=== PATIENT | male | born 1955 | race Caucasian/White ===

== ENCOUNTER 2017-10-02 02:10 | Observation (INO) ==
--- OUTSIDE RECORDS SUMMARY | 2017-10-02 02:17 | External Medical Summary | Referral Summary ---
:1955 Author Organization [facility] [address] [place] [address], Family Medicine Address [address] [address] Care Team Providers Name Role Phone Tejas Sharp Primary Care Physician Encounter VC Date(s): 01/12/16 - 01/12/16 [facility] , Family Medicine [address] [address] [place] Discharge Disposition: 01-Home or Self Care Attending Physician: Kristin Mejía Admitting Physician: Kristin Mejía Vital Signs Most recent to oldest [Reference Range]: 1 Temperature Oral [35.8-37.3 degC] 36.7 degC (01/12/16 4:04 PM) Peripheral Pulse Rate [60-100 bpm] 72 bpm (01/12/16 4:04 PM) Respiratory Rate [14-20 br/min] 16 br/min (01/12/16 4:04 PM) Blood Pressure [90-140/60-90 mmHg] 152/98 mmHg *HI* (01/12/16 4:04 PM) Problem List Condition Effective Dates Status Health Status Informant Acute upper respiratory infection Active (disorder)(Confirmed) Benign essential hypertension Active (disorder)(Confirmed) GERD (gastroesophageal reflux Active disease)(Confirmed) Mixed hyperlipidemia(Confirmed) Active Obesity(Confirmed) Active patient Allergies, Adverse Reactions, Alerts No Known Medication Allergies Medications Cozaar 100 mg oral tablet See Instructions, TAKE 1 TABLET BY MOUTH EVERY DAY, # 90 tabs, [id number], TAKE 1 TABLET BY MOUTH EVERY DAY Start Date: 11/14/15 Status: Orderedfenofibrate 145 mg oral tablet See Instructions, TAKE 1 TABLET BY MOUTH EVERY DAY, # 30 tabs, 5 Refill(s), [facility] : [id number], TAKE 1 TABLET BY MOUTH EVERY DAY Start Date: 09/19/15 Status: OrderedProtonix 40 mg oral delayed release tablet See Instructions, TAKE 1 TABLET BY MOUTH EVERY DAY, # 90 tabs, eRx: [facility]/ pharmacy #[id number], TAKE 1 TABLET BY MOUTH EVERY DAY Start Date: 11/07/15 Status: Orderedranitidine 150 mg oral tablet 150 mg 1 tabs, Oral, Bedtime (once a day), # 30 tabs, 0 Refill(s), Pharmacy: [facility] /pharmacy #[id number], 1 tabs Oral Bedtime (once a day) Start Date: 09/09/15 Status: Ordered Results No data available for this section Immunizations Vaccine Date Refusal Reason influenza virus vaccine, inactivated 09/09/15 influenza virus vaccine, inactivated 08/03/14 influenza virus vaccine, live 07/22/13 influenza virus vaccine, live 09/11/12 Procedures Procedure Date Related Diagnosis Body Site Colonoscopy1 12/03/14 knee Laparoscopy 2012 bilateral Inguinal herniorrhaphy 2010 Cholecystectomy 2001 1normal Social History Social History Type Response Smoking Status Never smoker Assessment and Plan Extracted from: Title: Ankle/Foot Problems * Author: Kristin Mejía Date: 01/12/16 Impression and Plan Diagnosis Foot pain, right (WOX55-HB M79.671, Working, Medical). Right leg pain (GRW13-NU M79.604, Medical). Right TIb/Fib: WNL Right foot: ? avulsion fx off lateral calcaneous Viewed in office. Referral to Ortho per pt preference over MRI first. RTC if Sx worsen or change.
--- OUTSIDE RECORDS SUMMARY | 2017-10-02 02:17 | External Medical Summary | Referral Summary ---
:1955 Author Organization [facility] [address] [place] [address], Family Medicine Address [address] [address] Care Team Providers Name Role Phone Tejas Sharp Primary Care Physician Encounter VC Date(s): 09/09/15 - 09/09/15 [facility] [address] , Family Medicine [address] [address] [place] Discharge Diagnosis: Low back pain Discharge Diagnosis: Routine physical examination Discharge Diagnosis: GERD (gastroesophageal reflux disease) Discharge Diagnosis: Mixed hyperlipidemia Discharge Diagnosis: HTN (hypertension) Discharge Disposition: 01-Home or Self Care Attending Physician: Tejas Sharp DO Admitting Physician: Tejas Sharp DO Vital Signs Most recent to oldest [Reference Range]: 1 Temperature Oral [35.8-37.3 degC] 36.8 degC (09/09/15 3:19 PM) Peripheral Pulse Rate [60-100 bpm] 68 bpm (09/09/15 3:19 PM) Respiratory Rate [14-20 br/min] 20 br/min (09/09/15 3:19 PM) Blood Pressure [90-140/60-90 mmHg] 144/86 mmHg *HI* (09/09/15 3:19 PM) Problem List Condition Effective Dates Status Health Status Informant Acute upper respiratory infection Active (disorder)(Confirmed) Benign essential hypertension Active (disorder)(Confirmed) GERD (gastroesophageal reflux Active disease)(Confirmed) Mixed hyperlipidemia(Confirmed) Active Obesity(Confirmed) Active patient Allergies, Adverse Reactions, Alerts No Known Medication Allergies Medications Cozaar 100 mg oral tablet See Instructions, TAKE 1 TABLET BY MOUTH ONCE DAILY, # 90 tabs, 1 Refill(s), [facility] : [id number], TAKE 1 TABLET BY MOUTH ONCE DAILY Start Date: 08/30/15 Status: OrderedProtonix 40 mg oral delayed release tablet See Instructions, TAKE 1 TABLET BY MOUTH EVERY DAY, # 90 tabs, 0 Refill(s), [id number], TAKE 1 TABLET BY MOUTH EVERY DAY Start Date: 08/17/15 Status: Orderedranitidine 150 mg oral tablet 150 mg 1 tabs, Oral, Bedtime (once a day), # 30 tabs, 0 Refill(s), Pharmacy: [facility] /pharmacy #[id number], 1 tabs Oral Bedtime (once a day) Start Date: 09/09/15 Status: OrderedRobaxin-750 oral tablet 750 mg 1 tabs, Oral, TID, X 30 days, # 90 tabs, 3 Refill(s), Pharmacy: [facility] pharmacy #[id number], 1 tabs Oral TID,x30 days Start Date: 09/09/15 Stop Date: 01/07/16 Status: Ordered Results Hematology Most recent to oldest [Reference Range]: 1 WBC [4.8-10.8 10*3/uL] 5.8 10*3/uL (09/09/15 4:39 PM) RBC [4.60-6.20] 4.88 (09/09/15 4:39 PM) Hgb [14.0-18.0 gm/dL] 14.9 gm/dL (09/09/15 4:39 PM) Hct [42.0-52.0 %] 42.1 % (09/09/15 4:39 PM) MCV [82.0-99.0 fL] 86.3 fL (09/09/15 4:39 PM) MCH [27.0-32.0 pg] 30.5 pg (09/09/15 4:39 PM) MCHC [32.0-36.0 gm/dL] 35.4 gm/dL (09/09/15 4:39 PM) RDW [11.5-14.5 %] 12.4 % (09/09/15 4:39 PM) Platelet [150-400 10*3/uL] 206 10*3/uL (09/09/15 4:39 PM) MPV [8.8-14.8 fL] 10.2 fL (09/09/15 4:39 PM) Immature Granulocytes [0.0-1.0 %] 0.5 % (09/09/15 4:39 PM) Neutrophils [51-75 %] 61 % (09/09/15 4:39 PM) Lymphocytes [20-46 %] 28 % (09/09/15 4:39 PM) Monocytes [4-11 %] 9 % (09/09/15 4:39 PM) Eosinophils [0-4 %] 2 % (09/09/15 4:39 PM) Basophils [0-2 %] 0 % (09/09/15 4:39 PM) Neutro Absolute [1.90-7.00 10*3] 3.48 10*3 (09/09/15 4:39 PM) Lymph Absolute [0.80-3.30 10*3] 1.61 10*3 (09/09/15 4:39 PM) H[place]ett Absolute [0.30-1.00 10*3] 0.52 10*3 (09/09/15 4:39 PM) Eos Absolute [0.00-0.50 10*3] 0.10 10*3 (09/09/15 4:39 PM) Baso Absolute [0.00-0.20 10*3] 0.01 10*3 (09/09/15 4:39 PM) Chemistry Most recent to oldest [Reference Range]: 1 Sodium Lvl [135-144 mEq/L] 140 mEq/L (09/09/15 4:39 PM) Potassium Lvl [3.5-5.2 mEq/L] 3.8 mEq/L (09/09/15 4:39 PM) Chloride [99-111 mEq/L] 104 mEq/L (09/09/15 4:39 PM) CO2 [23-31 mEq/L] 28 mEq/L (09/09/15 4:39 PM) AGAP [3-20] 8 (09/09/15 4:39 PM) BUN [8-26 mg/dL] 14 mg/dL (09/09/15 4:39 PM) Glucose Lvl [70-99 mg/dL] 95 mg/dL (09/09/15 4:39 PM) Creatinine Lvl [0.72-1.25 mg/dL] 1.05 mg/dL (09/09/15 4:39 PM) eGFR [>60 mL/min] >60 mL/min 1 (09/09/15 4:39 PM) Calcium Lvl [8.9-10.5 mg/dL] 9.7 mg/dL (09/09/15 4:39 PM) Albumin Lvl [3.5-5.0 gm/dL] 4.3 gm/dL (09/09/15 4:39 PM) Total Protein [6.4-8.3 gm/dL] 7.0 gm/dL (09/09/15 4:39 PM) Globulin [1.8-4.0 gm/dL] 2.7 gm/dL (09/09/15 4:39 PM) ALT [0-55 U/L] 22 U/L (09/09/15 4:39 PM) AST [5-34 U/L] 19 U/L (09/09/15 4:39 PM) Alk Phos [40-150 U/L] 39 U/L *LOW* (09/09/15 4:39 PM) Bili Total [0.2-1.2 mg/dL] 0.6 mg/dL (09/09/15 4:39 PM) PSA (wihout Reflex Free) [0.0-3.5 ng/mL] 0.8 ng/mL 2 (09/09/15 4:39 PM) Chol [0-199 mg/dL] 222 mg/dL *HI* (09/09/15 4:39 PM) Trig [0-149 mg/dL] 119 mg/dL (09/09/15 4:39 PM) HDL [40-84 mg/dL] 39 mg/dL *LOW* (09/09/15 4:39 PM) LDL [0-130 mg/dL] 159 mg/dL *HI* (09/09/15 4:39 PM) VLDL Cholesterol [0-28 mg/dL] 24 mg/dL (09/09/15 4:39 PM) Cardiac Risk [0.0-5.7] 5.7 (09/09/15 4:39 PM) TSH [0.35-4.94] 1.94 (09/09/15 4:39 PM) 1Result Comment: Multiply eGFR results by 1.21 for race.2Result Comment: AUA PSA Best Practice Guidelines: Age-Adjusted PSA Values by Ethnic Group Age Range Asians - Caucasians Americans 40-49 0-2.0 0-2.0 0-2.5 50-59 0-3.0 0-4.0 0-3.5 60-69 0-4.0 0-4.5 0-4.5 70-79 0-5.0 0-5.5 0-6.5 Immunizations Vaccine Date Refusal Reason influenza virus vaccine, inactivated 09/09/15 influenza virus vaccine, inactivated 08/03/14 influenza virus vaccine, live 07/22/13 influenza virus vaccine, live 09/11/12 Procedures Procedure Date Related Diagnosis Body Site Colonoscopy1 12/03/14 knee Laparoscopy 2012 bilateral Inguinal herniorrhaphy 2010 Cholecystectomy 2001 1normal Social History Social History Type Response Smoking Status Never smoker Assessment and Plan Extracted from: Title: Well Adult Exam - Male *, HTN/HLD Author: Tejas Sharp DO Date: Impression and Plan Diagnosis Routine physical examination (FIN71-ZM Z00.00, Discharge, Medical). Low back pain (JPV94-BL M54.5, Discharge, Medical). GERD (gastroesophageal reflux disease) (SAM18-JW K21.9, Discharge, Medical). Course: Progressing as expected. Plan: pt ed and reassurance anticipatory guidance lab preventative testing discussed, Lspine xray -- degen changes nsaids rx: robaxin stretching avoid heavy lifting and excerbating activity if worsen-- MRI disc lifestyle modifications continue protonix add zantac if persists -- EGD stop statin and fenofibrate. Patient Instructions: follow up in one year or sooner if needed. Diagnosis HTN (hypertension) ([id number]-[id number] I10, Discharge, Medical). Mixed hyperlipidemia (WIK62-YD E78.2, Discharge, Medical). Plan: 1. HTN - Blood pressure logs at home - discussed goal blood pressure Recommend a heart healthy diet, reduction of salt intake, limiting alcohol intake, smoking cessation, and exercise regularly avoid NSAIDS (anti-inflammatories) and over the counter decongestants 2. HLD -- Decrease cholesterol and fats in diet cont. med. discussed prison effects of elevated lipds including HTN, PAD, CVA, UT. LAB, f/u in 6 months. Dx/Order Association Plan: .
--- OUTSIDE RECORDS SUMMARY | 2017-10-02 02:17 | External Medical Summary | Referral Summary ---
:1955 Author Organization [facility] [address] [place] [address], Family Medicine Address [address] [address] Care Team Providers Name Role Phone Tejas Sharp Primary Care Physician Encounter [facility] [id number] Date(s): 11/28/15 - 11/28/15 [facility] , Family Medicine [address] [address] [place] Discharge Diagnosis: Acute maxillary sinusitis Discharge Disposition: 01-Home or Self Care Attending Physician: Tejas Sharp DO Admitting Physician: Tejas Sharp DO Vital Signs Most recent to oldest [Reference Range]: 1 Temperature Tympanic [36.6-38.1 degC] 36.5 degC *LOW* (11/28/15 11:33 AM) Peripheral Pulse Rate [60-100 bpm] 68 bpm (11/28/15 11:33 AM) Respiratory Rate [14-20 br/min] 16 br/min (11/28/15 11:33 AM) Blood Pressure [90-140/60-90 mmHg] 128/80 mmHg (11/28/15 11:33 AM) SpO2 99 % (11/28/15 11:33 AM) Problem List Condition Effective Dates Status Health Status Informant Acute upper respiratory infection Active (disorder)(Confirmed) Benign essential hypertension Active (disorder)(Confirmed) GERD (gastroesophageal reflux Active disease)(Confirmed) Mixed hyperlipidemia(Confirmed) Active Obesity(Confirmed) Active patient Allergies, Adverse Reactions, Alerts No Known Medication Allergies Medications Cozaar 100 mg oral tablet See Instructions, TAKE 1 TABLET BY MOUTH EVERY DAY, # 90 tabs, [id number], TAKE 1 TABLET BY MOUTH EVERY DAY Start Date: 11/14/15 Status: Orderedfenofibrate 145 mg oral tablet See Instructions, TAKE 1 TABLET BY MOUTH EVERY DAY, # 30 tabs, 5 Refill(s), eRx : [facility]/pharmacy #[id number], TAKE 1 TABLET BY MOUTH EVERY DAY Start Date: 09/19/15 Status: OrderedpredniSONE 20 mg oral tablet 20 mg 1 tabs, Oral, Daily, X 5 days, # 5 tabs, 0 Refill(s), Pharmacy: [facility]/ pharmacy #[id number], 1 tabs Oral Daily,x5 days Start Date: 11/28/15 Stop Date: 12/03/15 Status: OrderedProtonix 40 mg oral delayed release tablet See Instructions, TAKE 1 TABLET BY MOUTH EVERY DAY, # 90 tabs, eRx: [facility]/ pharmacy #[id number], TAKE 1 TABLET BY MOUTH EVERY DAY Start Date: 11/07/15 Status: Orderedranitidine 150 mg oral tablet 150 mg 1 tabs, Oral, Bedtime (once a day), # 30 tabs, 0 Refill(s), [id number], 1 tabs Oral Bedtime (once a day) Start Date: 09/09/15 Status: OrderedRobaxin-750 oral tablet 750 mg 1 tabs, Oral, TID, X 30 days, # 90 tabs, 3 Refill(s), Pharmacy: [facility]/ pharmacy #[id number], 1 tabs Oral TID,x30 days Start Date: 09/09/15 Stop Date: 01/07/16 Status: OrderedZithromax Z-Eugenio 250 mg oral tablet 1 packets, Oral, Daily, as directed on package labeling, X 5 days, # 6 tabs, 0 Refill(s), Pharmacy: [facility]/pharmacy #[id number], 1 packets Oral Daily,x5 days,Instr:as directed on package labeling Start Date: 11/28/15 Stop Date: 12/03/15 Status: Ordered Results No data available for this section Immunizations Vaccine Date Refusal Reason influenza virus vaccine, inactivated 09/09/15 influenza virus vaccine, inactivated 08/03/14 influenza virus vaccine, live 07/22/13 influenza virus vaccine, live 09/11/12 Procedures Procedure Date Related Diagnosis Body Site Colonoscopy1 12/03/14 knee Laparoscopy 2012 bilateral Inguinal herniorrhaphy 2011 Cholecystectomy 2001 1normal Social History Social History Type Response Smoking Status Never smoker Assessment and Plan Extracted from: Title: Upper Respiratory Infection * Author: Tejas Sharp DO Date: Impression and Plan Diagnosis Acute maxillary sinusitis (ETM41-GR J01.00, Discharge, Medical). Plan: sx tx: tylenol, motrin, fluids, rest; otc cough and cold prn cool mist humidifier rx: zpack rx: prednisone f.u if sx persist.
--- OUTSIDE RECORDS SUMMARY | 2017-10-02 02:17 | External Medical Summary | Continuity of Care Document ---
:1955 Author Organization [facility] Allergies Active Description Code Type Severity Reaction Onset Reported/ Identified Relationship Clinical to Patient Status Yes No Known NKMA N/A N/A 08/02/2014 Medication Allergies Medications There is no data. Problems Date Dx Attending Type Code Diagnosis Diagnosed By Coded 10/12/2016 Tejas Sharp E78.2 Mixed hyperlipidemia B 10/12/2016 Tejas Sharp F43.9 Reaction to severe B stress, unspecified 10/12/2016 Tejas Sharp I10 Essential (primary) B hypertension 10/12/2016 Tejas Sharp Z00.00 Encounter for B general adult medical examination without abnormal findings 11/09/2016 Tejas Sharp F43.9 Reaction to severe B stress, unspecified 11/09/2016 Tejas Sharp K21.9 Gastro-esophageal B reflux disease without esophagitis Procedures Code Description [place] [id number] Radiologic 01/12/2016 examination; tibia and fibula, 2 views [id number] Radiologic 01/12/2016 examination, foot; complete, minimum of 3 views.. 32507 Office or 01/12/2016 other outpatient visit for the evaluation and management of an established patient, which requires at least 2 of these 3 currie components: An expanded problem focused history; An expanded prob 85291 Office or 11/09/2016 other outpatient visit for the evaluation and management of an established patient, which requires at least 2 of these 3 currie components: An expanded problem focused history; An expanded prob Results There is no data. Encounters ACCT No. Visit Discharge Status Pt. Type Provider Facility Loc./Unit Complaint Date/Time [id number] 11/06/2013 11/06/2013 CLS Outpatient 10:13:00 23:59:59 [id number] 10/24/2013 10/24/2013 CLS Outpatient 09:26:00 23:59:59 [id number] 11/09/2016 11/09/2016 DIS Outpatient Lilian Sharp [facility] recheck 38 15:52:00 23:59:00 Tejas Damon [facility] [id number] 10/12/2016 10/12/2016 DIS Outpatient Sharp, Via [facility] TCPA 16 15:55:00 23:59:00 Tejas [place]field [facility] ANNUAL PHY Clinic [id number] 01/12/2016 01/12/2016 DIS Outpatient Methvin, Via [facility] ACC RIGHT 76 15:54:00 23:59:00 Kristin [place] [facility] LOWER FOOT Clinic INJ [id number] 11/28/2015 11/28/2015 DIS Outpatient Sharp, [facility] sinus inf 28 11:31:00 23:59:00 Tejas Damon Twyla FM Clinic [id number] 09/09/2015 09/09/2015 CLS Outpatient Sharp, [facility] WME and 64 15:06:00 23:59:59 Tejas Wakefield CDM Clinic [id number] 10/07/2014 10/07/2014 DIS Outpatient Sharp, [facility] fu appt 04 13:36:00 23:59:00 Tejas Damon [facility] heart Clinic issues, ekg refill rx [id number] 09/06/2014 09/06/2014 DIS Outpatient Chavez, Via [facility] cdm htn, 65 15:04:00 23:59:00 Elizabeth Wakefield discuss rx Clinic changes [id number] 08/03/2014 08/03/2014 DIS Outpatient Methvin, [facility] cdm htn am 38 15:12:00 23:59:00 Kristin Wakefield pt Clinic
--- OUTSIDE RECORDS SUMMARY | 2017-10-02 02:17 | External Medical Summary | Referral Summary ---
:1955 Author Organization [facility] Address [address] [address] Care Team Providers Name Role Phone Tejas Sharp Primary Care Physician Encounter [facility] [id number] Date(s): 10/12/16 - 10/12/16 [facility] [address] [address] [place] Discharge Diagnosis: HTN (hypertension) Discharge Diagnosis: Mixed hyperlipidemia Discharge Diagnosis: Stress Discharge Diagnosis: Routine physical examination Discharge Disposition: 01-Home or Self Care Attending Physician: Tejas Sharp DO Vital Signs Most recent to oldest [Reference Range]: 1 Temperature Tympanic [36.6-38.1 degC] 36.9 degC (10/12/16 4:04 PM) Peripheral Pulse Rate [60-100 bpm] 73 bpm (10/12/16 4:04 PM) Respiratory Rate [14-20 br/min] 16 br/min (10/12/16 4:04 PM) Blood Pressure [90-140/60-90 mmHg] 120/82 mmHg (10/12/16 4:04 PM) Problem List Condition Effective Dates Status Health Status Informant Acute upper respiratory infection Active (disorder)(Confirmed) Benign essential hypertension Active (disorder)(Confirmed) GERD (gastroesophageal reflux Active disease)(Confirmed) Mixed hyperlipidemia(Confirmed) Active Obesity(Confirmed) Active patient Allergies, Adverse Reactions, Alerts No Known Medication Allergies Medications fenofibrate 145 mg oral tablet See Instructions, TAKE 1 TABLET BY MOUTH EVERY DAY, # 30 tabs, 5 Refill(s), eRx : [id number], TAKE 1 TABLET BY MOUTH EVERY DAY Start Date: 09/19/15 Status: OrderedFLUoxetine 20 mg oral capsule 20 mg 1 caps, Oral, Daily, # 30 caps, 0 Refill(s), [id number] , 1 caps Oral Daily Start Date: 10/12/16 Status: Orderedlosartan 100 mg oral tablet See Instructions, TAKE 1 TABLET BY MOUTH EVERY DAY, # 90 tabs, eRx: [facility]/ pharmacy #[id number] Start Date: 08/13/16 Status: Orderedmethocarbamol 750 mg oral tablet See Instructions, TAKE 1 TABLET BY MOUTH 3 TIMES A DAY, # 90 tabs, 3 Refill(s), [id number], TAKE 1 TABLET BY MOUTH 3 TIMES A DAY Start Date: 05/08/16 Status: Orderedpantoprazole 40 mg oral delayed release tablet See Instructions, TAKE 1 TABLET BY MOUTH EVERY DAY, # 90 tabs, 1 Refill(s), eRx : [facility] #[id number] Start Date: 08/13/16 Status: OrderedraNITIdine 150 mg oral tablet 150 mg 1 tabs, Oral, Bedtime (once a day), # 30 tabs, 0 Refill(s), [id number], 1 tabs Oral Bedtime (once a day) Start Date: 10/12/16 Status: Ordered Results Hematology Most recent to oldest [Reference Range]: 1 WBC [4.8-10.8 10*3/uL] 6.6 10*3/uL (10/12/16 4:47 PM) RBC [4.60-6.20] 5.15 (10/12/16 4:47 PM) Hgb [14.0-18.0 gm/dL] 15.2 gm/dL (10/12/16 4:47 PM) Hct [42.0-52.0 %] 45.5 % (10/12/16 4:47 PM) MCV [82.0-99.0 fL] 88.3 fL (10/12/16 4:47 PM) MCH [27.0-32.0 pg] 29.5 pg (10/12/16 4:47 PM) MCHC [32.0-36.0 gm/dL] 33.4 gm/dL (10/12/16 4:47 PM) RDW [11.5-14.5 %] 12.9 % (10/12/16 4:47 PM) Platelet [150-400 10*3/uL] 181 10*3/uL (10/12/16 4:47 PM) MPV [8.8-14.8 fL] 9.9 fL (10/12/16 4:47 PM) Immature Granulocytes [0.0-1.0 %] 0.6 % (10/12/16 4:47 PM) Neutrophils [51-75 %] 54 % (10/12/16 4:47 PM) Lymphocytes [20-46 %] 33 % (10/12/16 4:47 PM) Monocytes [4-11 %] 10 % (10/12/16 4:47 PM) Eosinophils [0-4 %] 2 % (10/12/16 4:47 PM) Basophils [0-2 %] 0 % (10/12/16 4:47 PM) Neutro Absolute [1.90-7.00] 3.61 (10/12/16 4:47 PM) Lymph Absolute [0.80-3.30] 2.20 (10/12/16 4:47 PM) [place] Absolute [0.30-1.00] 0.64 (10/12/16 4:47 PM) Eos Absolute [0.00-0.50] 0.13 (10/12/16 4:47 PM) Baso Absolute [0.00-0.20] 0.02 (10/12/16 4:47 PM) Chemistry Most recent to oldest [Reference Range]: 1 Sodium Lvl [135-144 mEq/L] 141 mEq/L (10/12/16 4:47 PM) Potassium Lvl [3.5-5.2 mEq/L] 4.8 mEq/L (10/12/16 4:47 PM) Chloride [99-111 mEq/L] 105 mEq/L (10/12/16 4:47 PM) CO2 [23-31 mEq/L] 27 mEq/L (10/12/16 4:47 PM) AGAP [3-20] 9 (10/12/16 4:47 PM) BUN [8-26 mg/dL] 16 mg/dL (10/12/16 4:47 PM) Glucose Lvl [70-99 mg/dL] 81 mg/dL (10/12/16 4:47 PM) Creatinine Lvl [0.72-1.25 mg/dL] 1.04 mg/dL (10/12/16 4:47 PM) eGFR [>60 mL/min] >60 mL/min 1 (10/12/16 4:47 PM) Calcium Lvl [8.4-10.2 mg/dL] 9.4 mg/dL 2 (10/12/16 4:47 PM) Albumin Lvl [3.5-5.0 gm/dL] 4.5 gm/dL (10/12/16 4:47 PM) Total Protein [6.0-7.6 gm/dL] 7.2 gm/dL (10/12/16 4:47 PM) Globulin [1.8-4.0 gm/dL] 2.7 gm/dL (10/12/16 4:47 PM) ALT [0-55 U/L] 29 U/L (10/12/16 4:47 PM) AST [5-34 U/L] 21 U/L (10/12/16 4:47 PM) Alk Phos [40-150 U/L] 48 U/L (10/12/16 4:47 PM) Bili Total [0.2-1.2 mg/dL] 0.8 mg/dL (10/12/16 4:47 PM) PSA (wihout Reflex Free) [0.0-3.5 ng/mL] 1.2 ng/mL 3 (10/12/16 4:47 PM) Chol [0-199 mg/dL] 204 mg/dL *HI* (10/12/16 4:47 PM) Trig [0-149 mg/dL] 178 mg/dL *HI* (10/12/16 4:47 PM) HDL [40-84 mg/dL] 36 mg/dL *LOW* (10/12/16 4:47 PM) LDL [0-130 mg/dL] 132 mg/dL *HI* (10/12/16 4:47 PM) VLDL Cholesterol [0-28 mg/dL] 36 mg/dL *HI* (10/12/16 4:47 PM) Cardiac Risk [0.0-5.7] 5.7 (10/12/16 4:47 PM) TSH with Reflex Free T4 [0.35-4.94] 1.68 (10/12/16 4:47 PM) 1Result Comment: Multiply eGFR results by 1.21 for race.2Result Comment: Please note reference range change effective 2016.3Result Comment: AUA PSA Best Practice Guidelines: Age-Adjusted PSA Values by Ethnic Group Age Range Asians - Caucasians Americans 40-49 0-2.0 0-2.0 0-2.5 50-59 0-3.0 0-4.0 0-3.5 60-69 0-4.0 0-4.5 0-4.5 70-79 0-5.0 0-5.5 0-6.5 Immunizations Given and Recorded Vaccine Date Status Refusal Reason influenza virus vaccine, inactivated 09/09/15 Given influenza virus vaccine, inactivated 08/03/14 Recorded influenza virus vaccine, live 07/22/13 Given influenza virus vaccine, live 09/11/12 Given Procedures Procedure Date Related Diagnosis Body Site Collection of venous blood by venipuncture 10/12/16 Colonoscopy1 12/03/14 knee Laparoscopy 2012 bilateral Inguinal herniorrhaphy 2010 Cholecystectomy 2002 1normal Social History Social History Type Response Smoking Status Never smoker Assessment and Plan Extracted from: Title: Ambulatory Patient Education Author: Tejas Sharp DO Date: Preventive Medicine Health Maintenance, Male A healthy lifestyle and preventative care can promote health and wellness. Maintain regular health, dental, and eye exams. Eat a healthy diet. Foods like vegetables, fruits, whole grains, low- fat dairy products, and lean protein foods contain the nutrients you need and are low in calories. Decrease your intake of jackie ds high in solid fats, added sugars, and salt. Get information about a proper diet from your health care provider, if necessary. Regular physical exercise is one of the most important things you can do for your health. Most adults should get at least 150 minutes of moderate- intensity exercise (any activity that increases y our heart rate and causes you to sweat) each week. In addition, most adults need muscle-strengthening exercises on 2 or more days a week. Maintain a healthy weight. The body mass index (BMI) is a screening tool to identify possible weight problems. It provides an estimate of body fat based on height and weight. Your health care pro vider can find your BMI and can help you achieve or maintain a healthy weight. For males 20 years and older: A BMI below 18.5 is considered underweight. A BMI of 18.5 to 24.9 is normal. A BMI of 25 to 29.9 is considered overweight. A BMI of 30 and above is considered obese. Maintain normal blood lipids and cholesterol by exercising and minimizing your intake of saturated fat. Eat a balanced diet with plenty of fruits and vegetables. Blood tests for lipids and choles terol should begin at age 20 and be repeated every 5 years. If your lipid or cholesterol levels are high, you are over age 50, or you are at high risk for heart disease, you may need your cholesterol le vels checked more frequently.Ongoing high lipid and cholesterol levels should be treated with medicines if diet and exercise are not working. If you smoke, find out from your health care provider how to quit. If you do not use tobacco, do not start. Lung cancer screening is recommended for adults aged 5580 years who are at high risk for developing lung cancer because of a history of smoking. A yearly low-dose CT scan of the lungs is recom mended for people who have at least a 57-bony-fcya history of smoking and are current smokers or have quit within the past 15 years. A pack year of smoking is smoking an average of 1 pack of cigarettes a day for 1 year (for example, a 27-slhq-gfyw history of smoking could mean smoking 1 pack a day for 30 years or 2 packs a day for 15 years). Yearly screening should continue until the smoker has stoppe d smoking for at least 15 years. Yearly screening should be stopped for people who develop a health problem that would prevent them from having lung cancer treatment. If you choose to drink alcohol, do not have more than 2 drinks per day. One drink is considered to be 12 oz (360 mL) of beer, 5 oz (150 mL) of wine, or 1.5 oz (45 mL) of liquor. Avoid the use of street drugs. Do not share needles with anyone. Ask for help if you need support or instructions about stopping the use of drugs. High blood pressure causes heart disease and increases the risk of stroke. High blood pressure is more likely to develop in: People who have blood pressure in the end of the normal range (642415 /8589 mm Hg). People who are overweight or obese. People who are . If you are 1839 years of age, have your blood pressure checked every 35 years. If you are 40 years of age or older, have your blood pressure checked every year. You should have your blood p ressure measured twiceonce when you are at a hospital or clinic, and once when you are not at a hospital or clinic. Record the average of the two measurements. To check your blood pressure when you are not at a hospital or clinic, you can use: An automated blood pressure machine at a pharmacy. A home blood pressure monitor. If you are 4579 years old, ask your health care provider if you should take aspirin to prevent heart disease. Diabetes screening involves taking a blood sample to check your fasting blood sugar level. This should be done once every 3 years after age 45 if you are at a normal weight and without risk facto rs for diabetes. Testing should be considered at a younger age or be carried out more frequently if you are overweight and have at least 1 risk factor for diabetes. Colorectal cancer can be detected and often prevented. Most routine colorectal cancer screening begins at the age of 50 and continues through age 75. However, your health care provider may recomm end screening at an earlier age if you have risk factors for colon cancer. On a yearly basis, your health care provider may provide home test kits to check for hidden blood in the stool. A small camera at the end of a tube may be used to directly examine the colon (sigmoidoscopy or colonoscopy) to detect the earliest forms of colorectal cancer. Talk to your health care provider about this at age 50 wh en routine screening begins. A direct exam of the colon should be repeated every 510 years through age 75, unless early forms of precancerous polyps or small growths are found. People who are at an increased risk for hepatitis B should be screened for this virus. You are considered at high risk for hepatitis B if: You were born in a country where hepatitis B occurs often. Talk with your health care provider about which countries are considered high risk. Your parents were born in a high-risk country and you have not received a shot to protect against hepatitis B (hepatitis B vaccine). You have HIV or AIDS. You use needles to inject street drugs. You live with, or have sex with, someone who has hepatitis B. You are a man who has sex with other men (MSM). You get hemodialysis treatment. You take certain medicines for conditions like cancer, organ transplantation, and autoimmune conditions. Hepatitis C blood testing is recommended for all people born from 1945 through 1965 and any individual with known risk factors for hepatitis C. Healthy men should no longer receive prostate-specific antigen (PSA) blood tests as part of routine cancer screening. Talk to your health care provider about prostate cancer screening. Testicular cancer screening is not recommended for adolescents or adult males who have no symptoms. Screening includes self-exam, a health care provider exam, and other screening tests. Consult w ith your health care provider about any symptoms you have or any concerns you have about testicular cancer. Practice safe sex. Use condoms and avoid high-risk sexual practices to reduce the spread of sexually transmitted infections (STIs). You should be screened for STIs, including gonorrhea and chlamydia if: You are sexually active and are younger than 24 years. You are older than 24 years, and your health care provider tells you that you are at risk for this type of infection. Your sexual activity has changed since you were last screened, and you are at an increased risk for chlamydia or gonorrhea. Ask your health care provider if you are at risk. If you are at risk of being infected with HIV, it is recommended that you take a prescription medicine daily to prevent HIV infection. This is called pre-exposure prophylaxis (PrEP). You are considered at risk if: You are a man who has sex with other men (MSM). You are a heterosexual man who is sexually active with multiple partners. You take drugs by injection. You are sexually active with a partner who has HIV. Talk with your health care provider about whether you are at high risk of being infected with HIV. If you choose to begin PrEP, you should first be tested for HIV. You should then be tested every 3 months for as long as you are taking PrEP. Use sunscreen. Apply sunscreen liberally and repeatedly throughout the day. You should seek shade when your shadow is shorter than you. Protect yourself by wearing long sleeves, pants, a wide-esther mmed hat, and sunglasses year round whenever you are outdoors. Tell your health care provider of new moles or changes in moles, especially if there is a change in shape or color. Also, tell your health care provider if a mole is larger than the size of a pencil eraser. A one-time screening for abdominal aortic aneurysm (AAA) and surgical repair of large AAAs by ultrasound is recommended for men aged 6575 years who are current or former smokers. Stay current with your vaccines (immunizations). This information is not intended to replace advice given to you by your health care provider. Make sure you discuss any questions you have with your health care provider. Document Released: 02/14/2009 Document Revised: 09/09/2015 Document Reviewed: 01/14/2012 [employer] Patient Education 2016 [employer] No follow up information was provided. Extracted from: Title: Well Adult Exam - Male *, HTN/HLD Author: Tejas Sharp DO Date: Impression and Plan Diagnosis Routine physical examination (APG72-NH Z00.00, Discharge, Medical). Stress (FTU12-XP F43.9, Discharge, Medical). Course: Progressing as expected. Plan: pt ed and reassurance anticipatory guidance lab preventative testing discussed, pt ed and reassurance counseling trial of fluoxetine f/u in 2-4 weeks . Patient Instructions: follow up in one year or sooner if needed. Diagnosis HTN (hypertension) ([id number] I10, Discharge, Medical). Mixed hyperlipidemia (ZFC09-ZJ E78.2, Discharge, Medical). Plan: 1. HTN - Blood pressure logs at home - discussed goal blood pressure Recommend a heart healthy diet, reduction of salt intake, limiting alcohol intake, , and exercise regularly avoid NSAIDS (an ti-inflammatories) and over the counter decongestants 2. HLD -- Decrease cholesterol and fats in diet cont. med. discussed intermediate effects of elevated lipds including HTN, PAD, CVA, VA. LAB, f/u in 6 months. Patient Instructions: Health Maintenance, Male. Dx/Order Association Plan: .
[2017-10-02] MEDS ORDERED: ASPIRIN 81 MG CHEWABLE TABLET PO ONE (02:21)
[2017-10-02] MEDS: NITROGLYCERIN 0.4 MG SUBLINGUAL TABLET SL PRN ×2 (02:24→02:34)
[2017-10-02] MEDS: SALINE FLUSH 10ml SYRINGE IVF PRN ×2 (02:24→05:04)
--- NOTE | 2017-10-02 03:22 | Emergency Department Report ---
Chest Pain HPI - General Chief Complaint: Chest Pain Stated Complaint: Heavy chest,nausea Time Seen by Provider: 10/02/17 02:11 Source: patient Mode of arrival: ambulatory Limitations: no limitations - History of Present Illness HPI narrative: Patient presents with one hour history of chest heaviness central substernal. Symptoms began while the patient was sleeping and awoke him from sleep. Patient had similar symptoms earlier in the evening resolved on their own. Symptoms currently are a 5 out of 10, and patient is never felt this before. Patient does have cardiac risk factors including hypertension, hypercholesterolemia, and age 61. Review of systems is positive for increased heartburn above his baseline for the past several days to weeks, as well as feeling of nausea, tingling into the bilateral arms. - Related Data Home Medications Medication Instructions Recorded Confirmed Omeprazole Magnesium [Prilosec Otc] 20 mg PO PRN #0 01/31/11 10/02/17 Losartan [Cozaar] 1 tab PO DAILY 10/02/17 10/02/17 Methocarbamol [Robaxin] 1 tab PO TID 10/02/17 10/02/17 Pantoprazole Tab [Protonix Tab] 1 tab PO ACB 10/02/17 10/02/17 Allergies Allergy/AdvReac Type Severity Reaction Status Date / Time No Known Drug Allergies Allergy Unknown Verified 10/02/17 02:52 Review of Systems All systems: reviewed and negative except as stated PFSH Patient Stated Medical History Hypertension Yes Gastroesophageal Reflux Yes Disease - Social History Smoking status: Unknown if ever smoked Physical Exam - Limitations Limitations: no limitations - General General appearance: alert - Normal Exams: Head:: Normocephalic without trauma Eyes:: Pupils are PERRLA w/ EOMI, No scleral icterus, irritation, or foreign bodies noted ENMT:: No facial trauma, nasal exudates, pharyngeal erythema, or exudates are noted Neck:: Full range of motion, without adenopathy, JVD, bruits or thyromegaly Chest/Respirations:: Clear all jara, with good airflow, and symmetry bilaterally Cardiovascular:: Regular rate and rhythm, without murmur or gallop, Pulses 2+ all extremities, capillary refill, <2 seconds all extremities Abdomen:: Bowel sounds positive, soft, non-tender, non-distended, no hepatosplenomegaly, masses or bruits noted Lymphatic:: No lymphadenopathy, or lymphedema noted Musculoskeletal:: No tenderness, or deformity noted, good range of motion, all extremities Integumentary:: No rashes, hives, or bruising noted, hair and nails, without abnormality Neurological:: Patient is alert, and oriented, cranial nerves, motor/sensory/ cerebellar, exams w/o gross deficits, to observation Psychiatric:: Patient exhibits, appropriate attention, emotion and affect Course Vital Signs Temperature 97.4 F 10/02/17 02:13 Pulse Rate 64 10/02/17 02:13 Respiratory Rate 20 10/02/17 02:13 Blood Pressure 201/107 H 10/02/17 02:13 Pulse Oximetry 100 10/02/17 02:13 Temperature 97.4 F 10/02/17 02:13 Pulse Rate 64 10/02/17 02:13 Respiratory Rate 20 10/02/17 02:13 Blood Pressure 201/107 H 10/02/17 02:13 Pulse Oximetry 100 10/02/17 02:13 Chest Pain - MDM Narrative Medical decision making narrative: Patient given nitroglycerin 2 to complete relief of all of his pain as well as paresthesias EKG shows a normal sinus rhythm without ischemic, ectopy, or infarction. CBC normal, CMP normal with exception of lipase which is slightly elevated at 366. Troponin is normal. Discussed with Dr. Chappell - will admit/observation for CP/RO - Lab Data Result diagrams: 10/02/17 02:20 10/02/17 02:20 Lab Results 10/02/17 10/02/17 Range/Units 02:20 02:20 WBC 6.8 (4.5-11.0) T/MM3 RBC 5.11 (4.50-5.90) M/MM3 Hgb 15.7 (13.5-17.5) GM/DL Hct 45.1 (41-53) % MCV 88.3 (80-100) UM3 MCH 30.7 (26-34) UUG MCHC 34.8 (31-37) GM/DL RDW Std Deviation 39.8 (36.9-50.2) FL Plt Count 215 (130-400) T/MM3 MPV 9.2 L (9.4-12.4) UM3 Immature Gran % (Auto) 0.4 (0.0-0.5) % Neut % (Auto) 45.2 (33-66) % Lymph % (Auto) 40.8 (23-45) % [place] % (Auto) 8.6 (0-9.0) % Eos % (Auto) 4.4 H (0-4) % Baso % (Auto) 0.6 (0-2) % Neut # (Auto) 3.1 (1.8-7.7) T/MM3 Lymph # (Auto) 2.8 (1-4.8) T/MM3 [place] # (Auto) 0.6 (0-0.8) T/MM3 Eos # (Auto) 0.3 (0-0.5) T/MM3 Baso # (Auto) 0.0 (0-0.2) T/MM3 Abs Immat Gran (auto) 0.03 (0.00-0.03) T/MM3 Turbidity < 20 (0-20) Sodium 144 (134-144) MEQ/L Potassium 4.1 (3.6-5) MEQ/L Chloride 106 (98-107) MEQ/L Carbon Dioxide 29 (22-30) MEQ/L Anion Gap 9 (5-15) MEQ/L BUN 15.0 (9-20) MG/DL Creatinine 0.9 (0.8-1.5) MG/DL GFR Calculation 86 BUN/Creatinine Ratio 17 (6-26) RATIO Glucose 101 (75-110) MG/DL Calculated Osmolality 278 (261-280) MOSM/KG Calcium 9.5 (8.4-10.2) MG/DL Total Bilirubin 0.40 (0.20-1.30) MG/DL Icterus Index < 2 (0-7) AST 24 (17-59) U/L ALT 40 (21-72) U/L Alkaline Phosphatase 58 (38-126) U/L Troponin I 0.014 (0-0.12) ng/ml Total Protein 7.9 (6.3-8.2) G/DL Albumin 4.3 (3.5-5.0) G/DL Globulin 3.6 (2.4-3.6) G/DL Albumin/Globulin Ratio 1.2 (1.1-2.2) RATIO Lipase 366 H (23-300) U/L Specimen Hemolysis < 15 (0-25) Disposition Clinical Impression: Chest pain Qualifiers: Chest pain type: unspecified Qualified Code(s): R07.9 - Chest pain, unspecified Disposition: 02 To OBS [facility] Condition: Improved Prescriptions: No Action Pantoprazole Tab [Protonix Tab] 1 tab PO ACB Methocarbamol [Robaxin] 1 tab PO TID Losartan [Cozaar] 1 tab PO DAILY Omeprazole Magnesium [Prilosec Otc] 20 mg PO PRN #0 Referrals: Tejas Sharp [Family Provider] - - Seen By: physician
[2017-10-02] MEDS ORDERED: ACETAMINOPHEN 325 MG TABLET PO PRN ×2 (03:51→17:09)
[2017-10-02] MEDS ORDERED: MORPHINE SULFATE 4mg INJECTION IVP PRN ×3 (03:51→17:09)
[2017-10-02 04:22] VITALS: BMI 25.6
[2017-10-02] MEDS ORDERED: NITROGLYCERIN 0.4 MG SUBLINGUAL TABLET SL PRN ×2 (04:46→17:09)
--- NOTE | 2017-10-02 04:52 | History & Physical Report ---
History of Present Illness Date: 10/02/17 Chief complaint: CP HPI: Patient was seen with nursing assistance on 10/02/2017. Mr. Kohli is a pleasant 61yo man with h/o essential HTN, GERD, dyslipidemia with improved chol after diet change and off med, bilateral inguinal hernia repair, vasectomy, and choly. He has never had chest discomfort before, and had two episodes 10/01 evening of pressure/chest heaviness while watching TV. Noted arm parasthesia perhaps, but definitely sob and nausea, with this even moreso after going to be and having recurrence at 0145. It was relieved with NTG X 2 in the ED with him feeling normal now. No fevers, chills, aches, and no recent medication changes. 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 Medications Home Medications Medication Instructions Recorded Confirmed Type Omeprazole Magnesium [Prilosec Otc] 20 mg PO PRN #0 01/31/11 10/02/17 History Losartan [Cozaar] 1 tab PO DAILY 10/02/17 10/02/17 History Methocarbamol [Robaxin] 1 tab PO TID 10/02/17 10/02/17 History Pantoprazole Tab [Protonix Tab] 1 tab PO ACB 10/02/17 10/02/17 History Allergies Allergy/AdvReac Type Severity Reaction Status Date / Time No Known Drug Allergies Allergy Unknown Verified 10/02/17 02:52 Exam Vital Signs: Temperature 97.0 F 10/02/17 04:15 Pulse Rate 60 10/02/17 04:15 Respiratory Rate 20 10/02/17 04:15 Blood Pressure 147/87 H 10/02/17 04:15 Pulse Oximetry 98 10/02/17 03:45 Telemetry Rhythm: Sinus Rhythm Height/Weight/BMI: Height 1.88 m Weight 90.5 kg Body Mass Index 25.6 - Constitutional Present: no acute distress - Routine HEENT Exam Head: Present: normocephalic, atraumatic Eye: Present: EOMI - Routine Neck Exam Present: full ROM. Absent: JVD - Routine Respiratory Exam Present: CTA bilaterally. Absent: accessory muscle use - Routine Cardiovascular Exam Present: RRR, S1, S2, no murmur - Routine Abdominal Exam Present: soft, normoactive bowel sounds, tenderness, non distended - Routine Extremities Exam Absent: cyanosis, clubbing, edema - Routine Back/Spine/Pelvis Exam Back/Spine: Present: full ROM - Routine Skin Exam Present: intact - Routine Neurological Exam Present: alert, oriented X3, CN II-XII intact - Routine Psychiatric Exam Present: normal affect Results - Labs CBC & Chem 7: 10/02/17 02:20 10/02/17 02:20 Assessment and Plan (1) Chest pain Current visit: Yes Status: Acute (2) HTN (hypertension) Current visit: Yes Status: Acute (3) GERD (gastroesophageal reflux disease) Current visit: Yes Status: Acute (4) Dyslipidemia Current visit: Yes Status: Acute Assessment and Plan: 1. CP BALBIR on tele with concern for true angina. Serial enzymes, asa, check lipids. No obvious pulm, musculoskeltal etiology. Has GERD, but on PPI and this feels different. Will need cardiology eval and/or stress test. NPO. 2. Essential HTN with elevation at time of ED presentation, normalized after NTG. Monitor on losartan. 3. GERD on PPI. 4. h/o dyslipidemia. Recheck lipids 5. Elevated lipase, recheck at noon with no classic abd pain or sig etoh. LFTs fine. Resuscitation Status: Full Code - Physician Narrative Physician: Belen Villarreal MD Narrative: Date: 10/02/17 Time: 1200 Dr. Chappell's note reviewed. Mr. Kohli interviewed and examined. CC: Chest pain/pressure HPI: Mr. Kohli a 61-year-old male with no known cardiac history; he has a known history of hypertension and hyperlipidemia. Yesterday evening while watching television he developed a 10-15 minute episode of precordial chest pressure rated 3/10 extending from his mid-chest to the shoulders associated with feeling jittery, clammy, and nausea. Pressure sensation with numbness extended into both arms which "felt like they have gone to sleep". Patient took a tablet of Aleve to try to relieve discomfort with spontaneous resolution and no recurrence through the rest of the evening. Pain recurred at about 1:30 AM awakening from his sleep. Pain was more intense and categorized as a squeezing sensation in his chest greater on the left than the right this time extending into the arms which again felt numb. He was short of breath, nauseated, felt hot and clammy but had no diaphoresis. Pain persisted prompted him to present to the emergency room just after 2 AM where her EKG was unremarkable and pain was relieved with 2 sublingual nitroglycerin. Initial troponin was 0.014 and the patient was hospitalized for serial testing. Overnight he reports minor residual discomfort in his left chest which is not nearly as intense as discomfort he experienced yesterday evening or overnight. Blood pressure has been elevated on several occasions. PH/SH/FH: agree with that recorded above by Dr. Chapepll with additions of history of hyperlipidemia treated with medications in the past. ROS: 10 point review as previously described with additions of recent URI characterized by rhinorrhea, cough, and low-grade fever in late August. Patient additionally reports recent dental work with plans to have a crown put on soon. Finally he's had increased reflux with near emesis for a couple of weeks. EXAM: General-NAD, alert, fluent speech; blood pressure this morning 173/92, overnight 126/80; 97.0, 60, respiratory rate 20 with oxygen saturation 98% on room air HEENT-PERRL, EOMI without nystagmus, conjunctiva clear, sclera anicteric, conjugate gaze, facial structures symmetric, oropharynx clear, neck supple and without adenopathy Lungs-respirations nonlabored, good airflow, breath sounds clear Cardiac-regular rhythm, S1-S2, no murmur or click noted Abd-soft, nontender, without palpable mass, bowel sounds present Ext-without edema Skin-without rash or wounds Neuro-cranial nerves 3-12 intact, motor tone/power within normal limits, sensation intact to light touch 4 extremities Psych-calm, cooperative DATA: EKG reviewed by myself demonstrating sinus rhythm with no acute ST/T- wave changes. Chest x-ray also reviewed by myself reveals normal sized heart and clear lung jara. CBC/comprehensive metabolic panel unremarkable troponins 0.014-0.066-0.040, total cholesterol 188, LDL 130, HDL 34, triglycerides 120 A/P: Chest pain Hypertension Hyperlipidemia Gastroesophageal reflux, uncontrolled Anginal sounding chest pain; cardiology consulted-case discussed with Dr. Tolbert who will see him this afternoon and cardiac catheterization tentatively planned. Continue aspirin, anticipate adding low-dose beta [place] unless cardiac catheterization is negative. Echocardiogram ordered. Patient describes increased reflux recently and esophageal spasm may be source of presenting symptoms. PPI increased to twice a day. Hospital Course Summary Disclaimer: The visit summary below is not to be considered part of the above Progress Note.
[2017-10-02] MEDS: LR 1,000 ML IV SCH ×2 (05:04→14:53)
[2017-10-02] MEDS: PANTOPRAZOLE 40 MG TABLET PO SCH ×2 (06:54→10:02)
--- NOTE | 2017-10-02 07:34 | XRay Report ---
Indication: chest pain, central heaviness PROCEDURE: XR chest 1V: Encounter: Initial Comparison: None FINDINGS: The lungs are clear. There is no abnormal airspace opacity, pleural effusion or pneumothorax identified. The heart size, pulmonary vasculature and mediastinum are within normal limits. No significant skeletal abnormality is seen. IMPRESSION: No acute cardiopulmonary abnormality. .
[2017-10-02] MEDS ORDERED: ASPIRIN 325 MG TABLET PO SCH (09:00)
[2017-10-02] MEDS: LOSARTAN 100 MG TABLET PO SCH (10:00)
--- NOTE | 2017-10-02 14:37 | Cardiology Consult Note ---
History of Present Illness Consult date: 10/02/17 Requesting physician: Belen Villarreal Consult reason: chest pain History of present illness: 61 yr old male with hx of HLD/HTN not on meds came for chest pain. Pain sub sternal pressure like, radiating to neck and jaw. Associated with some nausea. Releieved with nitro. Still with some pressure now. Mod shortness of breath. 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 Family hx of CAD. No palpitation or syncope. No other cardiac hx. Review of Systems - Constitutional Constitutional: Present: as per HPI. Absent: fever(s), headache(s), malaise - EENMT Eyes: Absent: blurry vision Nose: Absent: nosebleeds - Cardiovascular Cardiovascular: Present: dyspnea on exertion, as per HPI. Absent: syncope Vascular: Absent: pedal edema - Respiratory Respiratory: Present: as per HPI, dyspnea - Gastrointestinal Gastrointestinal: Absent: abdominal pain, diarrhea, hematochezia, melena - Musculoskeletal Musculoskeletal: Present: other (Joint pain+) - Neurological Neurological: Absent: abnormal movements, dizziness, weakness - Psychiatric Psychiatric: Present: anxiety - Endocrine Endocrine: Absent: cold intolerance, palpitations - Hematologic/Lymphatic Hematologic/Lymphatic: Absent: easy bleeding, easy bruising [facility] [place] Patient Stated Medical History Hypertension Yes Gastroesophageal Reflux Yes Disease Shingles Yes Family History: Has hx of CAD in MOM. - Social History Smoking status: Never smoker Substance use type: does not use Medications Home Medications Medication Instructions Recorded Confirmed Type Omeprazole Magnesium [Prilosec Otc] 20 mg PO PRN #0 01/31/11 10/02/17 History Losartan [Cozaar] 1 tab PO DAILY 10/02/17 10/02/17 History Methocarbamol [Robaxin] 1 tab PO TID 10/02/17 10/02/17 History Pantoprazole Tab [Protonix Tab] 1 tab PO ACB 10/02/17 10/02/17 History Allergies Allergy/AdvReac Type Severity Reaction Status Date / Time No Known Drug Allergies Allergy Unknown Verified 10/02/17 02:52 Exam Vital signs: Temperature 97.0 F 10/02/17 04:15 Pulse Rate 66 10/02/17 09:12 Respiratory Rate 18 10/02/17 09:12 Blood Pressure 173/92 H 10/02/17 09:12 Pulse Oximetry 98 10/02/17 09:12 - Constitutional no acute distress - Routine HEENT Exam Head: Present: atraumatic Eye: Present: conjunctivae pink ENT: Present: mucous membranes moist - Routine Neck Exam Absent: JVD, carotid bruit - Routine Respiratory Exam Present: CTA bilaterally. Absent: respiratory distress, crackles - Routine Cardiovascular Exam Present: RRR, S1, S2, no murmur - Routine Abdominal Exam Present: soft, normoactive bowel sounds. Absent: tenderness - Routine Extremities Exam Absent: cyanosis, edema - Detailed Extremities Exam: Vascular Peripheral pulses: 2+ radial (R), 2+ dorsalis pedis (L), 2+ dorsalis pedis (R) - Routine Skin Exam Present: intact - Routine Neurological Exam Present: alert, oriented X3 - Routine Psychiatric Exam Present: normal affect Results 10/02/17 02:20 10/02/17 02:20 Cardiac Enzymes 10/02/17 10/02/17 Range/Units 06:23 11:53 Troponin I 0.066 D 0.040 (0-0.12) ng/ml Lipids 10/02/17 Range/Units 06:23 Triglycerides 120 (40-160) MG/DL Cholesterol 188 (132-199) MG/DL HDL Cholesterol 34 L (40-60) MG/DL Cholesterol/HDL Ratio 5.5 H (0-5.0) RATIO Intake and Output 10/01/17 10/02/17 10/02/17 22:59 06:59 14:59 Output Total 800 / 800 Balance -800 / -800 Output: Urine 800 / 800 Other: Urine Appearance Clear Urine Color Straw Urine Odor Strong Weight 90.5 kg 90.8 kg Patient Weight 10/03/17 06:59 Weight 90.8 kg - Imaging and Cardiology Echo: image reviewed - EKG Interpretation EKG: interpreted by YASMIND EKG shows: sinus rhythm Assessment and Plan - Assessment and Plan (1) Unstable angina Current visit: Yes Status: Acute Anginal pain. Still with pain and risk factors. Will schedule for a cath today. ASA/Statin. (2) Chest pain Current visit: Yes Status: Acute As above (3) HTN (hypertension) Current visit: Yes Status: Acute Came with HTNsive urgency. Now with decent numbers. As mentioned plan for cath. (4) GERD (gastroesophageal reflux disease) Current visit: Yes Status: Acute Per primary. (5) Dyslipidemia Current visit: Yes Status: Acute Will cont statin. Hospital Course Summary Disclaimer: The visit summary below is not to be considered part of the above Progress Note. Hospital Course: Came in for chest pain concerning for unstable angina. Tropx3 negative. Echo with no wall motion abn. Pending cath at this point.
[2017-10-02] MEDS ORDERED: FentaNYL 100 MCG/2 ML INJECTION ONE (15:02)
[2017-10-02] MEDS ORDERED: MIDAZOLAM 2mg/2ml INJECTION ONE ×2 (15:02→16:21)
[2017-10-02] MEDS ORDERED: NITROGLYCERIN 50MG INJECTION IV ONE (15:02)
[2017-10-02] MEDS ORDERED: Verapamil 5 MG/2 ML VIAL ONE (15:02)
[2017-10-02] MEDS ORDERED: LIDOCAINE 1% (10mg/ml) 30ml SDV INJ ONE (15:03)
[2017-10-02] MEDS ORDERED: HEPARIN 1,000unit/ml INJECTION 10ml ONE (15:03)
[2017-10-02] MEDS ORDERED: HEPARIN 1,000 UNITS/500 ML PREMIX (*CVL ONLY*) IV ONE (15:03)
[2017-10-02] MEDS ORDERED: CLOPIDOGREL 75 MG TABLET ONE (16:35)
[2017-10-02] MEDS ORDERED: MAG-AL + SIM ORAL LIQUID 30ml PO PRN (17:09)
[2017-10-02] MEDS ORDERED: METOCLOPRAMIDE 10mg/2ml INJECTION IVP PRN (17:09)
[2017-10-02] MEDS ORDERED: ATROPINE 1 MG/ML INJECTION IVP PRN (17:09)
[2017-10-02] MEDS ORDERED: LORazepam 0.5 MG TABLET PO PRN (17:09)
[2017-10-02] MEDS ORDERED: BISACODYL 10 MG SUPPOSITORY RECTALLY PRN (17:09)
[2017-10-02] MEDS ORDERED: ONDANSETRON 4 MG/2 ML INJECTION IVP PRN (17:09)
[2017-10-02] MEDS ORDERED: PROMETHAZINE 25 MG INJECTION IVP PRN (17:09)
[2017-10-02] MEDS ORDERED: NITROGLYCERIN DRIP 50 MG/250 ML BAG IV PRN (17:22)
[2017-10-02] MEDS: HYDROCODONE/APAP 5mg/325mg TABLET PO PRN (18:27)
[2017-10-02] MEDS: ASPIRIN *EC* 81 MG TABLET PO SCH (18:30)
[2017-10-02] MEDS ORDERED: ATORVASTATIN 40 MG TABLET PO SCH (21:00)
[2017-10-02] MEDS ORDERED: METHOCARBAMOL 750 MG TABLET PO ONE (22:45)
[2017-10-03] MEDS: LR 1,000 ML IV SCH (00:25)
[2017-10-03] MEDS: HYDROCODONE/APAP 5mg/325mg TABLET PO PRN (04:25)
[2017-10-03] MEDS: PANTOPRAZOLE 40 MG TABLET PO SCH ×2 (04:38→05:52)
[2017-10-03] MEDS: LOSARTAN 100 MG TABLET PO SCH ×2 (04:39→08:48)
[2017-10-03] MEDS ORDERED: CLOPIDOGREL 75 MG TABLET PO SCH (09:00)
[2017-10-03] MEDS ORDERED: AMLODIPINE 2.5 MG TABLET PO SCH (10:30)
[2017-10-03] MEDS: ASPIRIN *EC* 81 MG TABLET PO SCH (11:00)
--- NOTE | 2017-10-03 14:06 | Progress Note ---
- Date 10/03/17 Subjective: Mr. Kohli was seen initially earlier this morning and briefly reevaluated just before this documentation. He denies dyspnea or exertional dyspnea when up in the room. He reported very minor chest discomfort while still on the nitroglycerin drip when seen initially which increased after nitroglycerin was discontinued due to vague 1/10 pressure off nitroglycerin. He denied any arm symptoms whatsoever today and has not felt clammy or nauseated. He denies lightheadedness. He had minimal headache on nitroglycerin this morning. His reports intolerance of simvastatin in the past with myalgias occurring and that he was previously on fluoxetine for anxiety/hypertension but discontinued it after 1 or 2 months. Objective Vital signs: Temperature 97.9 F 10/03/17 07:47 Pulse Rate 60 10/03/17 12:00 Respiratory Rate 16 10/03/17 11:00 Blood Pressure 139/88 10/03/17 11:00 Pulse Oximetry 97 -RA 10/03/17 11:00 I/O 2554/3100 EXAM General-NAD, alert, fluent speech HEENT-conjunctiva clear, sclera anicteric, conjugate gaze Lungs-respirations nonlabored, good airflow, per sounds clear Cardiac-regular rhythm, S1-S2 Abd-soft, nontender, normal bowel sounds Ext-without edema, some bruising over the radial aspect of right hand, no hematoma present Neuro-sensation intact to light touch bilateral hands, collar tailor symmetric Psych-calm, cooperative - Rhythm: Normal Sinus Rhythm Height/Weight/BMI: Height 1.88 m Weight 89.4 kg Body Mass Index 25.6 Results - Labs CBC & Chem 7: 10/03/17 04:22 10/03/17 04:22 - ECG Data Tracing #2 I reviewed this ECG and interpreted as documented below: (sinus rhythm, rate 62 , diffuse T-wave flattening, WA interval 107 ms-shorter than yesterday) Assessment and Plan (1) Unstable angina Problem details: 99% lesion proximal RCA-stent 2-10/02/17 Current visit: Yes Status: Acute (2) HTN (hypertension) Current visit: Yes Status: Acute (3) Dyslipidemia Current visit: Yes Status: Acute Assessment and Plan: Impression: Chest pain/unstable angina CAD-99% RCA stenosis Hypertension Hyperlipidemia Gastroesophageal reflux, uncontrolled Plan: Underwent cardiac catheterization yesterday with revascularization of the right coronary artery, nitroglycerin drip weaned off this morning after it was continued overnight for borderline blood pressures. Blood pressure has been higher earlier this afternoon, low-dose amlodipine added this morning and cardiology has subsequently initiated treatment with metoprolol 25 mg twice a day. Continue to monitor on telemetry as patient had a right coronary intervention yesterday and has had low normal heart rates prior to a beta blockade. Atorvastatin initiated yesterday but does was not taken due to past intolerance of simvastatin-rationale for use of statin with coronary disease and following acute intervention was discussed with the patient's by myself and subsequently with patient/family by cardiology. Continue atorvastatin. Increase activity; reassess blood pressure later today to determine if patient can discharge home or will require further inpatient evaluation. Discussed with Dr. Tolbert and Dr. Berger. Resuscitation Status: Full Code - Physician Narrative Narrative: Date: 10/03/17 Time: 1400 Hospital Course Summary Disclaimer: The visit summary below is not to be considered part of the above Progress Note. Hospital Course: 10/02/17 Came in for chest pain concerning for unstable angina. Tropx3 negative. Echo with no wall motion abn. Pending cath at this point. 10/03/17 Underwent cardiac catheterization yesterday with revascularization of the right coronary artery, nitroglycerin drip weaned off this morning after it was continued overnight for borderline blood pressures. Blood pressure has been higher earlier this afternoon, low-dose amlodipine added this morning and cardiology has subsequently initiated treatment with metoprolol 25 mg twice a day. Continue to monitor on telemetry as patient had a right coronary intervention yesterday and has had low normal heart rates prior to a beta blockade. Atorvastatin initiated yesterday but does was not taken due to past intolerance of simvastatin-rationale for use of statin with coronary disease and following acute intervention was discussed with the patient's by myself and subsequently with patient/family by cardiology. Continue atorvastatin. Increase activity; reassess blood pressure later today to determine if patient can discharge home or will require further inpatient evaluation.
--- NOTE | 2017-10-03 14:38 | Cardiology Progress Note ---
Subjective Principal diagnosis: CAD, chest pain Interval history: Patient is doing better, less chest pain, no shortness of breath Exam Vital signs: Temperature 97.9 F 10/03/17 07:47 Pulse Rate 67 10/03/17 14:00 Respiratory Rate 15 10/03/17 14:00 Blood Pressure 159/92 H 10/03/17 13:43 Pulse Oximetry 97 10/03/17 14:00 Narrative: WD WN - Constitutional no acute distress - Routine HEENT Exam Head: Present: normocephalic, atraumatic Eye: Present: EOMI. Absent: PERRL - Routine Respiratory Exam Present: CTA bilaterally (Right wrist: No hematoma, good pulse) - Routine Cardiovascular Exam Present: RRR, S1, S2, no murmur - Routine Abdominal Exam Present: soft, normoactive bowel sounds, non distended Results 10/03/17 04:22 10/03/17 04:22 Cardiac Enzymes 10/03/17 Range/Units 04:22 AST 19 (17-59) U/L Lipids 10/03/17 Range/Units 04:22 Triglycerides 154 (40-160) MG/DL Cholesterol 178 (132-199) MG/DL HDL Cholesterol 29 L (40-60) MG/DL Cholesterol/HDL Ratio 6.1 H (0-5.0) RATIO CBC 10/03/17 Range/Units 04:22 WBC 7.0 (4.5-11.0) T/MM3 RBC 4.70 (4.50-5.90) M/MM3 Hgb 14.3 (13.5-17.5) GM/DL Hct 41.0 (41-53) % Plt Count 177 (130-400) T/MM3 Neut # (Auto) 4.7 (1.8-7.7) T/MM3 Lymph # (Auto) 1.7 (1-4.8) T/MM3 Pope # (Auto) 0.4 (0-0.8) T/MM3 Eos # (Auto) 0.1 (0-0.5) T/MM3 Baso # (Auto) 0.0 (0-0.2) T/MM3 Comprehensive Metabolic Panel 10/03/17 Range/Units 04:22 Sodium 142 (134-144) MEQ/L Potassium 3.9 (3.6-5) MEQ/L Chloride 107 (98-107) MEQ/L Carbon Dioxide 28 (22-30) MEQ/L BUN 10.0 (9-20) MG/DL Creatinine 0.7 L D (0.8-1.5) MG/DL Glucose 106 (75-110) MG/DL Calcium 9.0 (8.4-10.2) MG/DL AST 19 (17-59) U/L ALT 37 (21-72) U/L Alkaline Phosphatase 43 (38-126) U/L Total Protein 6.4 (6.3-8.2) G/DL Albumin 3.4 L (3.5-5.0) G/DL Intake and Output 10/02/17 10/03/17 10/03/17 22:59 06:59 14:59 Intake Total 735.092 / 735.092 836.900 / 434.291 9751.342 / 1237.342 Output Total 1300 / 1300 1000 / 1000 2400 / 2400 Balance -564.908 / -564.908 -163.100 / -163.100 -1162.658 / -1162.658 Intake: IV 735.092 / 735.092 836.900 / 836.900 317.342 / 317.342 Lr 1,000 ml @ 100 mls/hr IV . 711.667 / 711.667 800.000 / 800.000 279.667 / 279.667 Q10H NACHO Rx#:[id number] Nitroglycerin Drip 50 mg In 250 23.425 / 23.425 36.9 / 36.9 37.675 / 37.675 ml @ 10 MCG/MIN 3 mls/hr IV . Q24H PRN Rx#:[id number] Oral 920 / 920 Output: Urine 1300 / 1300 1000 / 1000 2400 / 2400 Other: Urine Appearance Clear Clear Clear Urine Color Yellow Yellow Yellow Urine Odor Normal Stool Characteristics Normal for Patient Stool Color Brown Stool Consistency Soft Size of Bowel Movement Large Small # Bowel Movements 1 1 Weight 89.4 kg Patient Weight 10/04/17 06:59 Weight 89.4 kg Assessment and Plan - Assessment and Plan (1) Chest pain Current visit: Yes Status: Acute (2) HTN (hypertension) Problem details: Add Metoprolol for better BP control Current visit: Yes Status: Acute (3) GERD (gastroesophageal reflux disease) Current visit: Yes Status: Acute (4) Dyslipidemia Current visit: Yes Status: Acute (5) Unstable angina Problem details: 99% lesion proximal RCA-stent 2-10/02/17 Current visit: Yes Status: Acute (6) Coronary artery disease Problem details: S/P stenting of the RCA, stable, continue ASA and Plavix. Patient provided with post cath instructions, f/U in 2 week Current visit: Yes Status: Acute Hospital Course Summary Disclaimer: The visit summary below is not to be considered part of the above Progress Note. Hospital Course: 10/02/17 Came in for chest pain concerning for unstable angina. Tropx3 negative. Echo with no wall motion abn. Pending cath at this point. 10/03/17 Underwent cardiac catheterization yesterday with revascularization of the right coronary artery, nitroglycerin drip weaned off this morning after it was continued overnight for borderline blood pressures. Blood pressure has been higher earlier this afternoon, low-dose amlodipine added this morning and cardiology has subsequently initiated treatment with metoprolol 25 mg twice a day. Continue to monitor on telemetry as patient had a right coronary intervention yesterday and has had low normal heart rates prior to a beta blockade. Atorvastatin initiated yesterday but does was not taken due to past intolerance of simvastatin-rationale for use of statin with coronary disease and following acute intervention was discussed with the patient's by myself and subsequently with patient/family by cardiology. Continue atorvastatin. Increase activity; reassess blood pressure later today to determine if patient can discharge home or will require further inpatient evaluation.
[2017-10-03 17:56] VITALS: BP 150/90; PULSE 62; RESP 17; TEMP 97.2; O2SAT 98
--- NOTE | 2017-10-03 21:10 | Discharge Summary ---
Discharge Information Date of admission: 10/02/17 03:59 Anticipated date of discharge: 10/03/17 Attending Physician: Belen Villarreal MD Primary care physician: Tejas Sharp Consults: Consulting Provider: Geraldo Tolbert Reason For Exam: chest pain Outpt Cardiac Rehab Consult [CONS] Routine - Discharge Diagnosis (1) Unstable angina Status: Acute (2) HTN (hypertension) Status: Acute (3) Dyslipidemia Status: Acute Chest pain/unstable angina CAD-99% RCA stenosis Hypertension Hyperlipidemia Gastroesophageal reflux, uncontrolled - Procedures Procedures: Echocardiogram on 10/02/17-full report pending but verbal report indicated normal wall motion/ejection fraction Cardiac catheterization on 10/02/17 with identification of 99% proximal RCA stenosis, 2 stents placed; minor disease reported in other vessels. - Laboratory Labs: Troponin 0.014-0.066-0.040 Total cholesterol 188, triglycerides 120, LDL 130, HDL 34, VLDL 24 Liver enzymes normal 10/03/17 04:22 10/03/17 04:22 - Radiology Radiology: Chest x-ray-NAD on 10/02/17 History of Present Illness HPI: Mr. Kohli is a pleasant 61yo man with h/o essential HTN, GERD, dyslipidemia with improved chol after diet change and off med. He has never had chest discomfort before, and had two episodes 10/01 evening of pressure/chest heaviness while watching TV. Noted arm parasthesia perhaps, but definitely sob and nausea, with this even more after going to bed and having recurrence at 0145. It was relieved with NTG X 2 in the ED with him feeling normal now. No fevers, chills , aches, and no recent medication changes. Objective Vital signs: Temperature 97.2 F 10/03/17 16:30 Pulse Rate 62 10/03/17 16:30 Respiratory Rate 17 10/03/17 16:30 Blood Pressure 150/90 H 10/03/17 16:30 Pulse Oximetry 98 10/03/17 16:30 Rhythm: Normal Sinus Rhythm Height/Weight/BMI: Height 1.88 m Weight 89.4 kg Body Mass Index 25.6 - Constitutional Present: no acute distress, other (minor anxiety) - Routine Respiratory Exam Present: CTA bilaterally - Routine Cardiovascular Exam Present: RRR, S1, S2 - Routine Abdominal Exam Present: soft Hospital Course This is a general summary of the patient's hospital course. For more details refer to the complete medical record. Hospital course: Mr. Kohli was admitted for episodes of escalating chest tightness with associated nausea, dyspnea, feeling clammy although not diaphoretic, and paresthesias/pressure in his arms. EKG was unremarkable and serial troponins remained within normal limits in our lab. He was empirically treated with aspirin and seen by Dr. Tolbert for formal cardiac evaluation. Echocardiogram was unremarkable and the patient went to cardiac catheterization due to unstable nature of anginal symptoms described. At catheterization he was found to have a 99% lesion of the proximal right coronary lesion and 2 drug-eluting stents were placed. He subsequently transferred to the ICU on a nitroglycerin drip due to minor lingering chest discomfort and hypertension. Blood pressures remain elevated overnight and through the early part of 10/03. He received 2.5 mg of amlodipine in conjunction with home dose of losartan allowing nitroglycerin to be titrated off although blood pressure remained elevated. Subsequently metoprolol 25 mg twice a day was added with gradual improvement although pressures remained modestly elevated throughout the late afternoon. Blood pressure at discharge was 150/90 and heart rate 62. Family felt anxiety of hospitalization contributed to the patient's hypertension and indicated blood pressure is typically well controlled when monitored at home. I elected not to increase medications further and discharged patient on combination of losartan and metoprolol without amlodipine to minimize risk of hypotension in the immediate time. Plavix and atorvastatin were initiated post catheterization. On admission the patient also described increased reflux symptomatology for several weeks. Protonix was increased from 40 mg daily to twice a day to try to improve prove symptom control. Patient was stable for discharge late in the day on 10/03 with instructions to follow up with Dr. Tolbert in one week and Dr. Sharp in 1-2 weeks. Time spent with patient: discharge greater than 30 minutes Discharge Plan - Discharge Disposition Discharge Date: 10/03/17 Disposition: Discharged Home, Self-Care *Condition: Improved Reason For Visit (Visit label in EMR): unstable angina - Discharge Medications *Discharge Medications: New Clopidogrel [Plavix] 75 mg PO DAILY #30 tab Metoprolol Tartrate [Lopressor] 25 mg PO BIDWM #60 tab Aspirin *EC* [Ecotrin] 81 mg PO DAILY tab Atorvastatin [Lipitor] 80 mg PO HS #30 tab Nitroglycerin [Nitrostat] 0.4 mg SL Q5M PRN #25 tab PRN Reason: Angina Continue Methocarbamol [Robaxin] 1 tab PO TID Losartan [Cozaar] 1 tab PO DAILY Changed Pantoprazole Tab [Protonix Tab] 1 tab PO BID #0 Discontinued Omeprazole Magnesium [Prilosec Otc] 20 mg PO PRN #0 - Discharge Packet/Instructions *Diet: low fat, low salt *Activity: as tolerates *Pain Management/Treatment: tylenol as needed, if recurrent chest pain use nitroglycerin after sitting or lying down *Wound Care: monitor wrist at cath site for bleeding or drainage Additional Instructions: -take aspirin 81 mg daily, can purchase over the counter. -take Plavix 75 mg daily to prevent stent closure in conjunction with aspirin, you will need to continue this for a year at least. 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 -take metoprolol 25 mg twice daily for your blood pressure (in addition to losartan previously taken); hold if pulse <50 or sBP <90 or if you are lightheaded. - increase pantoprazole to 40 mg twice daily to see if it gets reflux under control. -nitroglycerin as needed for chest pain. -see Dr. Tolbert next week, see Dr. Sharp in 1-2 weeks as well to recheck blood pressure and reflux *Expected Signs/Symptoms: fatigue, reflux, may have lightheadedness if you blood pressure of heart rate is too low *Notify Physician if: recurrent chest pain, persistent high or low blood pressures *During Business Hours Contact: Dr. Sharp or Dr. Tolbert's office *After Business Hours Contact: after hour numbers for you doctors (if you call the office it will typically forward you to after service # or give you message with the #) *Pending Lab/Results: No Pending Lab - Referrals/Follow Up *Referrals/Follow Up: Geraldo Tolbert MD [Physician] - (next week in [place] office) Tejas Sharp [Family Provider] - (1-2 weeks) - Patient Handouts Patient Handouts: [facility] [place] Heart Cath Trans Rad, Chest Pain (GEN) - Dismissal Complete Discharge Instructions are:: Complete Physician Narrative - Narrative Attestation Narrative: Date: 10/03/17 Time: 2106
--- NOTE | 2017-10-04 07:59 | Cardiac Catheterization Report ---
DATE OF PROCEDURE: 10/02/2017 PROCEDURE PERFORMED: Cardiac catheterization. REASON FOR CARDIAC CATH: 61-year-old gentleman with hypertension, hyperlipidemia who presented for unstable angina. AUC CRITERIA FOR CARDIAC CATH: #3 - Unstable angina. PROCEDURE DATA After obtaining informed consent, the patient was placed on cardiac cath table. A time-out was performed. A right ? was performed using standard techniques. Right radial artery was used for access. A 6-Gambian sheath was placed. __ __? angiography was performed with 6-Gambian [place] catheter. Left heart catheterization was performed with 6-Gambian [place] catheter. At the conclusion of the procedure a radial compression device was used to achieve hemostasis. Intervention was performed as described below. HEMODYNAMICS LVEDP 10. CORONARY ANGIOGRAPHY 1. Left main large with no evidence of disease. 2. LAD moderately large vessel with diffuse mild 10-20% disease of diagonal 1. Diagonal 2 has mild 10-20%. 3. Circumflex - large vessel with mild diffuse 20-30% disease. OM1 and OM2 are moderately large vessels with mild disease. 4. Right coronary artery large vessel with proximal 90% disease followed by a sequential 99% tight lesion in the mid RCA. Mid to distal RCA has 50-60% disease. RPD and RPL are dominant vessels with mild diffuse 20-30% disease. DIAGNOSTIC CONCLUSIONS 1. Severe sequential proximal and mid RCA lesions. 2. Nonobstructive disease otherwise. 3. Normal left ventricular diastolic pressure. RECOMMENDATIONS 1. Proceed with PCI to the right coronary artery. PCI DATA Right coronary artery was engaged with a JR4 6-Gambian guide. IV heparin was used for adequate anticoagulation. Runthrough wire was used to pass across the vessel. Balloon angioplasty was performed with 3.0 x 15 mm semi-compliant balloon followed by placement of a 3.0 x 15 mm in the mid RCA followed by 3.0 x 22 mm Resolute [place] drug-eluting stent overlapping. It was followed by postdilatation with a _3-5 cross?_ 12 mm balloon, postdilated to close to 3.3 mm in the proximal vessels. At the conclusion of the procedure 99% stenosis was down to 0% and TUYET-3 flow was noted pre- and postprocedure. CONCLUSIONS Severe right coronary artery disease, status post two overlapping drug-eluting Resolute 3.0 x 15 mm and 3.0 x 22 mm Resolute [place] stents, distal to proximal, postdilated to 3.3 mm. RECOMMENDATIONS 1. Dual antiplatelet for at least one year. 2. Continue risk factor modification. 3. Will follow up in the clinic in one week. 4. Moderate sedation was performed, uncomplicated, for a period of 60 minutes. MTDD
--- NOTE | 2017-10-04 10:43 | Echocardiogram ---
DATE OF SERVICE: 10/02/2017 ECHOCARDIOGRAM REPORT Please refer to the dimensions of the cardiac chambers which is attached. Left Ventricle: Normal left ventricular cavity size. Borderline left ventricular hypertrophy. Normal left ventricular ejection fraction - ejection fraction of 60-65%. Grade I diastolic dysfunction. Right Ventricle: Normal in size. Normal systolic function. ? dimension, LV? dimensions please._ Left ventricular posterior wall 1.05. LV end-systolic dimension 3. No regional wall motion abnormality identified. Aortic valve likely trileaflet. No evidence for stenosis. No aortic regurgitation. Mitral valve normal in structure and function. No mitral regurgitation. No mitral stenosis. Tricuspid valve structure normal. No tricuspid regurgitation. Pulmonary valve poorly visualized. No pulmonary insufficiency. Right atrium normal in size. Left atrium normal in size. Aortic root normal in size. Pulmonary vein - systolic greater than diastolic. IVC not well visualized. No evidence for pulmonary hypertension. SUMMARY 1. Normal left ventricular systolic function. No regional wall motion abnormalities. 2. No evidence of pulmonary hypertension. 3. Grade 1 diastolic dysfunction. MTDD
== END 2017-10-03 18:45 | disposition home or self-care (01) ==
LOC: MED 02:10 → ED 02:10 → SUATTDRO 03:59 → MED 04:10 → CCU 16:39
PROVIDERS: ADMIT Hospitalist; ATTEND Internal Medicine